=== PATIENT | female | born 1965 | race Caucasian/White ===

== ENCOUNTER → 2016-06-28 | Outpatient (CLI) | payer OTHER ==
--- NOTE | 2016-06-28 12:27 | DX ---
Biphasic Esophagram Clinical History: 50-year-old female with dysphagia, throat clearing, and a left submandibular globu s sensation, which worsens seasonally during the winter time. The patient has taken Prilosec, but dis continued its use secondary to nausea. Evaluate dysphagia. ICD-10 Diagnostic Code: R13.10. Technique: While patient was standing, effervescent crystals and thick barium were ingested, and the patient was imaged in the anterior and LPO and left lateral projections. A barium tablet was ingeste d. The patient was placed in a prone MARTINEZ position and thin barium was ingested while a Valsalva maneu vicente was performed. Imaging was also performed with the patient in a supine position. Fluoroscopy Time: 1.6 minutes (exposure dose of 16.80 mGy). Comparison Study: None. Findings: There is appropriate oropharyngeal propulsion of the bolus into the hypopharynx with a nor mal, symmetrical appearance to the vallecula and the piriform sinuses. The posterior cervical esophag us is normal. There is mild degenerative disk space narrowing at C6-C7, with a small ventral traction osteophytes with only minimal narrowing of the prevertebral space. There is no cricopharyngeus spasm or achalasia. There is no Zenker's diverticulum. There is antegrade esophageal motility while standi ng; however, when the patient was supine, there was both antegrade and retrograde esophageal motility , which was seen in association with several episodes of throat clearing. There is no hiatal hernia d espite provocative maneuvers, although there was some very mild fold thickening of the distal thoraci c esophagus near the GE junction. There is no esophageal ulceration, stricture, or diverticulum. Impression: 1. Mild esophageal dysmotility, particularly when the patient was supine. 2. Mild inflammatory thickening of the distal thoracic esophagus near the GE junction, with no marina ulceration.
== END ==
LOC: FIMAGING 09:39
PROVIDERS: ATTEND Psychiatry & Neurology Neurology
DX: K20.9 Esophagitis, unspecified (principal); R13.10 Dysphagia, unspecified

== ENCOUNTER → 2016-07-07 | Outpatient (CLI) | payer OTHER ==
[~2016-07-07] MED LIST: LIDOCAINE 1% 30 ML SDV ONE; NA BICARBONATE 50 MEQ/50 ML VIAL ONE
[2016-07-07 09:35] LABS: INR 0.96 (0.83-1.16); PROTIME(PATIENT) 12.7 SEC (12.0-15.0)
[2016-07-07 09:36] LABS: APTT 28.4 SEC (23.0-38.0)
--- NOTE | 2016-07-07 10:53 | DX ---
Fluoroscopically guided lumbar puncture History: Headaches, visual changes . Comparison: Lumbar puncture April 28, 2016. PQRS Crosscutting Measure #226: Current tobacco user: No. Procedure: Prior to the procedure, the risks and benefits, including headache, infection, and bleedin g were explained to the patient and informed written consent was obtained. An area over L5-S1 was ma rked then prepped and draped in the usual sterile fashion. Buffered lidocaine was administered super ficially for local anesthesia. Using intermittent fluoroscopic observation, a 25-gauge Yojana spina l needle was advanced into the thecal sac. 13 mL of clear CSF was obtained and sent for labs. The ne edle was removed and a bandage applied. The patient tolerated the procedure well with no immediate c omplications. 0.2 minutes of fluoroscopy were utilized. Dose= 1.1 mGy. Impression: Fluoroscopically guided lumbar puncture as above.
== END ==
LOC: FIMAGING 08:16
PROVIDERS: ATTEND Radiology Diagnostic Radiology
PROC: 009U3ZX Drainage of Spinal Canal, Percutaneous Approach, Diagnostic (ICD-10-PCS; principal; 2016-07-07)
PROC: B01B1ZZ Fluoroscopy of Spinal Cord using Low Osmolar Contrast (ICD-10-PCS; principal; 2016-07-07)
DX: R93.8 Abnormal findings on diagnostic imaging of other specified body structures (principal); G93.9 Disorder of brain, unspecified

== ENCOUNTER → 2016-07-14 | Outpatient (CLI) | payer OTHER ==
[~2016-07-14] MED LIST changes: +IOPAMIDOL (ISOVUE-300) 100 ML BTL IV ONE; -LIDOCAINE 1% 30 ML SDV ONE; -NA BICARBONATE 50 MEQ/50 ML VIAL ONE
== END ==
LOC: FIMAGING 11:54
PROVIDERS: ATTEND Psychiatry & Neurology Neurology
DX: G93.9 Disorder of brain, unspecified (principal); Z53.9 Procedure and treatment not carried out, unspecified reason
CPT/HCPCS: Q9967

== ENCOUNTER → 2016-08-21 | Outpatient (CLI) | payer OTHER | LOC: FIMAGING 11:35 | PROVIDERS: ATTEND Psychiatry & Neurology Neurology | DX: R91.1 Solitary pulmonary nodule (principal); R13.10 Dysphagia, unspecified; R51 Headache; H53.9 Unspecified visual disturbance | CPT/HCPCS: Q9967 ==

== ENCOUNTER → 2016-09-27 | Outpatient (CLI) | payer OTHER | LOC: FIMAGING 12:58 | PROVIDERS: ATTEND Psychiatry & Neurology Neurology | DX: M50.323 Other cervical disc degeneration at C6-C7 level (principal); M51.34 Other intervertebral disc degeneration, thoracic region; M51.36 Other intervertebral disc degeneration, lumbar region; M25.551 Pain in right hip; M25.552 Pain in left hip ==

== ENCOUNTER → 2016-11-10 | Outpatient (CLI) | payer OTHER | LOC: FIMAGING 07:02 | PROVIDERS: ATTEND Obstetrics & Gynecology | DX: R94.6 Abnormal results of thyroid function studies (principal) | CPT/HCPCS: 76536-PO ==

== ENCOUNTER → 2017-02-07 | Outpatient (CLI) | payer OTHER ==
[~2017-02-07] MED LIST changes: +GADOBUTROL 10 ML VIAL IVP ONE; -IOPAMIDOL (ISOVUE-300) 100 ML BTL IV ONE
== END ==
LOC: FIMAGING 11:38
PROVIDERS: ATTEND Family Medicine
DX: R91.1 Solitary pulmonary nodule (principal); D32.9 Benign neoplasm of meninges, unspecified
CPT/HCPCS: A9585

== ENCOUNTER → 2017-04-02 | Outpatient (CLI) | payer OTHER | LOC: FIMAGING 15:34 | PROVIDERS: ATTEND Obstetrics & Gynecology | DX: Z12.31 Encounter for screening mammogram for malignant neoplasm of breast (principal); Z80.3 Family history of malignant neoplasm of breast | CPT/HCPCS: G0202 ==

== ENCOUNTER → 2017-04-05 | Outpatient (CLI) | payer OTHER | LOC: FIMAGING 12:17 | PROVIDERS: ATTEND Obstetrics & Gynecology | DX: Z12.39 Encounter for other screening for malignant neoplasm of breast (principal); R92.0 Mammographic microcalcification found on diagnostic imaging of breast | CPT/HCPCS: G0206 ==

== ENCOUNTER → 2017-04-18 | Day surgery (SDC) | payer OTHER ==
[~2017-04-18] MED LIST changes: +BUPIVACAINE 0.5% 10 ML SDV ONE; -GADOBUTROL 10 ML VIAL IVP ONE; +LIDOCAINE 1% 300 MG/30 ML SDV ONE; +THROMBIN (BOVINE) 5,000 UNIT VIAL TP ONE
== END | disposition home or self-care (01) ==
LOC: FIMAGING 07:05
PROVIDERS: ATTEND Radiology Diagnostic Radiology
PROC: BH01ZZZ Plain Radiography of Left Breast (ICD-10-PCS; principal; 2017-04-18)
DX: R92.0 Mammographic microcalcification found on diagnostic imaging of breast (principal)
CPT/HCPCS: G0206

== ENCOUNTER → 2017-12-10 | Outpatient (CLI) | payer OTHER ==
[~2017-12-10] MED LIST changes: -BUPIVACAINE 0.5% 10 ML SDV ONE; +GADOBUTROL 10 ML VIAL IVP ONE; -LIDOCAINE 1% 300 MG/30 ML SDV ONE; -THROMBIN (BOVINE) 5,000 UNIT VIAL TP ONE
== END ==
LOC: FIMAGING 12:55
PROVIDERS: ATTEND Internal Medicine
DX: D32.9 Benign neoplasm of meninges, unspecified (principal); R93.0 Abnormal findings on diagnostic imaging of skull and head, not elsewhere classified
CPT/HCPCS: A9585

== ENCOUNTER → 2018-03-22 | Outpatient (CLI) | payer OTHER | LOC: FIMAGING 11:02 | PROVIDERS: ATTEND Internal Medicine | DX: R92.2 Inconclusive mammogram (principal) ==

== ENCOUNTER → 2018-04-24 | Outpatient (CLI) | payer OTHER | LOC: FIMAGING 07:21 | PROVIDERS: ATTEND Physician Assistant Medical | DX: R10.84 Generalized abdominal pain (principal); R53.83 Other fatigue; R93.421 Abnormal radiologic findings on diagnostic imaging of right kidney; Z80.0 Family history of malignant neoplasm of digestive organs; Z80.3 Family history of malignant neoplasm of breast ==